=== PATIENT | female | born 1950 | race Caucasian/White ===

== ENCOUNTER 2019-09-25 13:53 | Observation (INO) ==
[2019-09-25 15:24] LABS: Bilirubin,Urine Negative (Negative); Blood,Urine Negative (Negative); Clarity,Urine Clear (Clear); Color,Urine Yellow (Yellow); Glucose,Urine (UA) >=1000 mg/dL (Normal); Ketones,Urine 40 mg/dL (Negative); Leukocyte Esterase,Urine Negative (Negative); Nitrite,Urine Negative (Negative); Protein,Urine Negative (Neg-Trace); Specific Gravity,Urine > 1.030 (1.010-1.025); Urobilinogen,Urine Normal (Normal)
[2019-09-25] MEDS ORDERED: Aspirin 81 MG TAB.CHEW PO ONE (15:30)
[2019-09-25] MEDS ORDERED: 0.9 % Sodium Chloride 1,000 ML IVC ONE ×3 (15:44→16:36)
[2019-09-25 15:51] LABS: Basophils % 0.4 %; Eosinophils # 0.1 K/mcL (0.0-0.6); Eosinophils % 0.6 %; Hematocrit 46.3 % (35.3-44.9); Hemoglobin 14.6 g/dL (11.5-15.4); Immature Granulocytes % 0.1 % (0-4); Lymphocytes # 1.5 K/mcL (0.6-4.6); Lymphocytes % 17.6 %; Mean Corpuscular HGB Conc 31.5 g/dL (31.6-35.5); Mean Corpuscular Hemoglobin 28.9 pg (28.0-33.3); Mean Corpuscular Volume 91.5 fL (83.0-100.0); Monocytes # 0.6 K/mcL (0.0-1.3); Monocytes % 7.1 %; Neutrophils # 6.3 K/mcL (1.6-8.9); Platelet Count 227 K/mcL (140-400); Red Blood Count 5.06 M/mcL (3.82-4.97); Segmented Neutrophils % 74.2 %; White Blood Count 8.5 K/mcL (4.3-11.1)
[2019-09-25 15:57] LABS: VBG HCO3 22 mEq/L (21-27); VBG PCO2 43 mmHg (41-51); VBG PH 7.32 pH Units (7.32-7.42); VBG PO2 36 mmHg (25-50)
[2019-09-25 16:17] LABS: Alanine Aminotransferase 14 Units/L (7-52); Albumin/Globulin Ratio 1.4 (1.1-2.2); Alkaline Phosphatase 145 Units/L (34-104); Aspartate Amino Transferase 10 Units/L (13-39); BUN/Creatinine Ratio 28 (6-26); Bilirubin,Total 0.9 mg/dL (0.3-1.0); Blood Urea Nitrogen 28 mg/dL (8-23); Calcium 9.6 mg/dL (8.6-10.3); Carbon Dioxide 21 mEq/L (23-29); Chloride 96 mEq/L (98-107); Globulin 2.9 g/dL (2.4-3.5); Glucose 552 mg/dL (70-105); Magnesium 2.1 mg/dL (1.6-2.6); Osmolality,Calculated 309 (280-300); Phosphorous 4.5 mg/dL (2.7-4.5); Potassium 4.4 mEq/L (3.5-5.1); Sodium 134 mEq/L (136-145); Total Protein 6.9 g/dL (6.4-8.9); Troponin I < 0.03 ng/mL (< 0.04); eGFR For African Americans > 60 (> 60); eGFR For Non-African Americans 56 (> 60)
[2019-09-25] MEDS ORDERED: *HR* Dextrose 50 % in Water (Syg) 50 ML SYRINGE IVP PRN ×2 (16:35→22:02)
[2019-09-25] MEDS ORDERED: Insulin Human Regular 100 UNIT in 0.9 % Sodium Chloride 100 ML IVC SCH (16:45)
[2019-09-25 16:59] LABS: Thyroid Stimulating Hormone 0.089 mcIU/mL (0.340-5.600)
[2019-09-25] MEDS ORDERED: Naloxone 0.4 MG/ML INJ IVP PRN (17:24)
[2019-09-25] MEDS ORDERED: Ondansetron 4 MG/2 ML VIAL IVP PRN (17:24)
[2019-09-25] MEDS ORDERED: D5% in 0.45% NACL 1,000 ML IVC PRN (17:29)
[2019-09-25] MEDS ORDERED: D5% in 0.45% NACL w KCl 20 MEQ/1,000 ML MLS IVC PRN (17:29)
[2019-09-25] MEDS ORDERED: Insulin Regular, Human 100 UNIT/ML IV PRN (17:29)
[2019-09-25] MEDS ORDERED: 0.9 % Sodium Chloride w KCl 20 MEQ/1,000 ML MLS IVC SCH (17:30)
[2019-09-25 20:32] LABS: C-Reactive Protein 33 mg/L (Less than 10); Creatine Kinase 35 Units/L (30-223)
[2019-09-25 20:33] LABS: BUN/Creatinine Ratio 30 (6-26); Blood Urea Nitrogen 25 mg/dL (8-23); Calcium 8.7 mg/dL (8.6-10.3); Carbon Dioxide 24 mEq/L (23-29); Chloride 105 mEq/L (98-107); Glucose 192 mg/dL (70-105); Osmolality,Calculated 296 (280-300); Potassium 3.9 mEq/L (3.5-5.1); Sodium 138 mEq/L (136-145); eGFR For African Americans > 60 (> 60); eGFR For Non-African Americans > 60 (> 60)
[2019-09-25] MEDS ORDERED: traZODone 50 MG TABLET PO PRN (20:36)
[2019-09-25] MEDS ORDERED: Insulin DETEMIR 100 UNIT/ML X5UNITS SQ SCH (22:00)
[2019-09-25] MEDS ORDERED: D5% in Water 1,000 ML IVC PRN (22:02)
[2019-09-25] MEDS ORDERED: Dextrose Gel 15 GM/37.5 ML TUBE PO PRN ×2 (22:02)
[2019-09-26 02:21] LABS: Estimated Average Glucose 200 mg/dl
[2019-09-26 02:25] LABS: Basophils % 0.4 %; Eosinophils # 0.1 K/mcL (0.0-0.6); Hematocrit 38.5 % (35.3-44.9); Immature Granulocytes % 0.3 % (0-4); Lymphocytes # 1.9 K/mcL (0.6-4.6); Lymphocytes % 27.6 %; Mean Corpuscular HGB Conc 32.7 g/dL (31.6-35.5); Mean Corpuscular Hemoglobin 29.2 pg (28.0-33.3); Mean Corpuscular Volume 89.3 fL (83.0-100.0); Mean Platelet Volume 10.2 fL (9.4-12.4); Monocytes # 0.6 K/mcL (0.0-1.3); Monocytes % 8.2 %; Neutrophils # 4.3 K/mcL (1.6-8.9); Platelet Count 208 K/mcL (140-400); Red Blood Count 4.31 M/mcL (3.82-4.97); Segmented Neutrophils % 61.5 %
[2019-09-26 02:42] LABS: BUN/Creatinine Ratio 33 (6-26); Blood Urea Nitrogen 21 mg/dL (8-23); Calcium 8.7 mg/dL (8.6-10.3); Carbon Dioxide 21 mEq/L (23-29); Chloride 109 mEq/L (98-107); Glucose 113 mg/dL (70-105); Magnesium 1.9 mg/dL (1.6-2.6); Osmolality,Calculated 292 (280-300); Phosphorous 3.7 mg/dL (2.7-4.5); Sodium 139 mEq/L (136-145); eGFR For African Americans > 60 (> 60); eGFR For Non-African Americans > 60 (> 60)
[2019-09-26 02:43] LABS: BUN/Creatinine Ratio 33 (6-26); Blood Urea Nitrogen 21 mg/dL (8-23); Calcium 8.7 mg/dL (8.6-10.3); Carbon Dioxide 22 mEq/L (23-29); Chloride 108 mEq/L (98-107); Glucose 112 mg/dL (70-105); Osmolality,Calculated 292 (280-300); Sodium 139 mEq/L (136-145); eGFR For African Americans > 60 (> 60); eGFR For Non-African Americans > 60 (> 60)
[2019-09-26 02:47] LABS: Hemoglobin 12.6 g/dL (11.5-15.4)
[2019-09-26 03:12] LABS: Triiodothyronine (T3) Total 0.82 ng/mL (0.87-1.78)
[2019-09-26] MEDS ORDERED: *HR* Heparin 5,000 UNIT/ML VIAL SQ SCH (06:00)
[2019-09-26] MEDS: Insulin LISPRO 300 UNITS/3 ML VIAL SQ SCH ×2 (08:07→12:17)
[2019-09-26 16:19] VITALS: BP 152/75
[2019-09-26] MEDS ORDERED: Insulin LISPRO 300 UNITS/3 ML VIAL SQ SCH (21:00)
== END 2019-09-26 17:33 | disposition home or self-care (01) ==
LOC: 2NNU 13:53 → EMEROOARM 13:53 → SUATTDRO 17:32 → 2NNU 18:15
PROVIDERS: ADMIT Internal Medicine; ATTEND Internal Medicine

== ENCOUNTER 2020-06-13 18:19 | Observation (INO) ==
[2020-06-13] MEDS ORDERED: Nitroglycerin 0.4 MG TAB.SUBL SL ONE (18:40)
[2020-06-13] MEDS: Nitroglycerin 0.4 MG TAB.SUBL SL SCH ×3 (18:43→18:55)
[2020-06-13 18:51] LABS: Basophils # 0.1 K/mcL (0.0-0.2); Basophils % 0.5 %; Eosinophils # 0.2 K/mcL (0.0-0.6); Eosinophils % 1.7 %; Hematocrit 46.8 % (35.3-44.9); Hemoglobin 15.1 g/dL (11.5-15.4); Immature Granulocytes % 0.2 % (0-4); Lymphocytes # 1.8 K/mcL (0.6-4.6); Lymphocytes % 18.1 %; Mean Corpuscular HGB Conc 32.3 g/dL (31.6-35.5); Mean Corpuscular Hemoglobin 29.4 pg (28.0-33.3); Mean Corpuscular Volume 91.1 fL (83.0-100.0); Mean Platelet Volume 9.7 fL (9.4-12.4); Monocytes # 0.6 K/mcL (0.0-1.3); Monocytes % 6.4 %; Neutrophils # 7.3 K/mcL (1.6-8.9); Platelet Count 240 K/mcL (140-400); Red Blood Count 5.14 M/mcL (3.82-4.97); Red Cell Distribution Width 12.9 % (11.5-14.5); Segmented Neutrophils % 73.1 %
[2020-06-13 18:57] LABS: Prothrombin Time 11.6 Seconds (9.4-12.1)
[2020-06-13 19:02] LABS: VBG HCO3 24 mEq/L (21-27); VBG PCO2 48 mmHg (41-51); VBG PH 7.31 pH Units (7.32-7.42); VBG PO2 49 mmHg (25-50)
[2020-06-13 19:16] LABS: Alanine Aminotransferase 13 Units/L (7-52); Albumin 4.6 g/dL (3.5-5.7); Albumin/Globulin Ratio 1.5 (1.1-2.2); Alkaline Phosphatase 143 Units/L (34-104); Aspartate Amino Transferase 12 Units/L (13-39); BUN/Creatinine Ratio 34 (6-26); Blood Urea Nitrogen 26 mg/dL (8-23); Carbon Dioxide 21 mEq/L (23-29); Chloride 96 mEq/L (98-107); Glucose 572 mg/dL (70-105); Osmolality,Calculated 307 (280-300); Potassium 4.2 mEq/L (3.5-5.1); Sodium 133 mEq/L (136-145); Total Protein 7.6 g/dL (6.4-8.9); Troponin I < 0.03 ng/mL (< 0.04); eGFR For African Americans > 60 (> 60); eGFR For Non-African Americans > 60 (> 60)
[2020-06-13] MEDS ORDERED: Isovue-370 500 ML BOTTLE IVP ONE (19:24)
[2020-06-13] MEDS ORDERED: D5% in 0.45% NACL w KCl 20 MEQ/1,000 ML MLS IVC PRN (20:13)
[2020-06-13] MEDS ORDERED: Insulin Regular, Human 100 UNIT/ML IV ONE (20:13)
[2020-06-13] MEDS ORDERED: Insulin Regular, Human 100 UNIT/ML IV PRN (20:13)
[2020-06-13] MEDS ORDERED: *HR* Dextrose 50 % in Water (Vial) 50 ML VIAL IVP PRN (20:13)
[2020-06-13] MEDS ORDERED: Insulin Human Regular 100 UNIT in 0.9 % Sodium Chloride 100 ML IVC SCH (20:15)
[2020-06-13] MEDS ORDERED: 0.45 % Sodium Chloride w/KCl 20 MEQ/1,000 ML MLS IVC SCH (20:15)
[2020-06-13] MEDS ORDERED: 0.9 % Sodium Chloride 1,000 ML IVC ONE (20:16)
[2020-06-13] MEDS ORDERED: Naloxone 0.4 MG/ML INJ IVP PRN (20:20)
[2020-06-13] MEDS ORDERED: Aspirin 325 MG TABLET PO ONE (20:20)
[2020-06-13] MEDS ORDERED: Acetaminophen 325 MG TABLET PO PRN (20:20)
[2020-06-13] MEDS ORDERED: Ondansetron ODT 4 MG TAB.RAPDIS SL PRN (20:20)
[2020-06-13] MEDS ORDERED: methylPREDNISolone 125 MG/2 ML VIAL IVP ONE (21:11)
[2020-06-13] MEDS: Nitroglycerin 1 INCH/GM PACKET TP SCH (22:22)
[2020-06-13] MEDS: Melatonin 3 MG TABLET PO SCH (22:22)
[2020-06-13 22:59] LABS: Bilirubin,Urine Negative (Negative); Blood,Urine Negative (Negative); Clarity,Urine Clear (Clear); Color,Urine Colorless (Yellow); Glucose,Urine (UA) >=1000 mg/dL (Normal); Ketones,Urine 60 mg/dL (Negative); Leukocyte Esterase,Urine Negative (Negative); Nitrite,Urine Negative (Negative); PH,Urine 5.5 pH Units (5.0-8.0); Protein,Urine Negative (Neg-Trace); RBC,Urine 0-3 per hpf (0-3); Specific Gravity,Urine > 1.030 (1.010-1.025); Squamous Epithelial Cell,Urine Few per hpf (None-Few); Urobilinogen,Urine Normal (Normal); WBC,Urine 0-3 per hpf (0-3)
[2020-06-13 23:09] LABS: Amphetamine Screen,Urine Negative ng/mL (Cutoff=1000); Barbiturate Screen,Urine Negative ng/mL (Cutoff=200); Benzodiazepines Screen,Urine Negative ng/mL (Cutoff=200); Cannabinoid Screen,Urine Negative ng/mL (Cutoff = 50); Cocaine Screen,Urine Negative ng/mL (Cutoff= 300); Opiate Screen,Urine Negative ng/mL (Cutoff=300); Phencyclidine Screen,Urine Negative ng/mL (Cutoff=25)
[2020-06-13] MEDS: Ipratropium/Albuterol Neb 3 ML IH SCH (23:35)
[2020-06-14 02:02] LABS: BUN/Creatinine Ratio 39 (6-26); Blood Urea Nitrogen 26 mg/dL (8-23); Calcium 8.5 mg/dL (8.6-10.3); Carbon Dioxide 20 mEq/L (23-29); Chloride 106 mEq/L (98-107); Glucose 143 mg/dL (70-105); Osmolality,Calculated 291 (280-300); Potassium 3.5 mEq/L (3.5-5.1); Sodium 137 mEq/L (136-145); eGFR For African Americans > 60 (> 60); eGFR For Non-African Americans > 60 (> 60)
[2020-06-14] MEDS: Ipratropium/Albuterol Neb 3 ML IH SCH ×6 (03:36→23:48)
[2020-06-14] MEDS ORDERED: Dextrose Gel 15 GM/37.5 ML TUBE PO PRN ×2 (03:41)
[2020-06-14] MEDS ORDERED: D5% in Water 1,000 ML IVC PRN (03:41)
[2020-06-14] MEDS ORDERED: Insulin DETEMIR 100 UNIT/ML X5UNITS SQ SCH ×2 (03:47→05:15)
[2020-06-14] MEDS ORDERED: Patient Taking Own Medication 1 EACH SQ SCH (04:15)
[2020-06-14] MEDS: Nitroglycerin 1 INCH/GM PACKET TP SCH (04:58)
[2020-06-14] MEDS: *HR* Enoxaparin 40 MG/0.4 ML SYRINGE SQ SCH (04:58)
[2020-06-14 06:30] LABS: Basophils % 0.2 %; Hematocrit 41.1 % (35.3-44.9); Immature Granulocytes % 0.3 % (0-4); Lymphocytes # 0.8 K/mcL (0.6-4.6); Lymphocytes % 8.4 %; Mean Corpuscular HGB Conc 32.1 g/dL (31.6-35.5); Mean Corpuscular Hemoglobin 28.8 pg (28.0-33.3); Mean Corpuscular Volume 89.5 fL (83.0-100.0); Mean Platelet Volume 10.2 fL (9.4-12.4); Monocytes # 0.1 K/mcL (0.0-1.3); Monocytes % 1.2 %; Neutrophils # 8.4 K/mcL (1.6-8.9); Platelet Count 211 K/mcL (140-400); Red Blood Count 4.59 M/mcL (3.82-4.97); Red Cell Distribution Width 12.8 % (11.5-14.5); Segmented Neutrophils % 89.9 %; White Blood Count 9.4 K/mcL (4.3-11.1)
[2020-06-14 06:34] LABS: Hemoglobin 13.2 g/dL (11.5-15.4)
[2020-06-14 06:37] LABS: VBG HCO3 19 mEq/L (21-27); VBG PCO2 36 mmHg (41-51); VBG PH 7.34 pH Units (7.32-7.42); VBG PO2 154 mmHg (25-50)
[2020-06-14] MEDS: Insulin LISPRO 300 UNITS/3 ML VIAL SQ SCH ×6 (06:42→16:22)
[2020-06-14 06:51] LABS: BUN/Creatinine Ratio 33 (6-26); Blood Urea Nitrogen 24 mg/dL (8-23); Calcium 9.1 mg/dL (8.6-10.3); Carbon Dioxide 17 mEq/L (23-29); Chloride 103 mEq/L (98-107); Glucose 341 mg/dL (70-105); Osmolality,Calculated 300 (280-300); Potassium 3.5 mEq/L (3.5-5.1); Sodium 136 mEq/L (136-145); eGFR For African Americans > 60 (> 60); eGFR For Non-African Americans > 60 (> 60)
[2020-06-14] MEDS ORDERED: Insulin LISPRO 300 UNITS/3 ML VIAL SQ SCH ×2 (07:30→21:00)
[2020-06-14] MEDS: Aspirin 81 MG TAB.CHEW PO SCH (08:39)
[2020-06-14] MEDS ORDERED: predniSONE 20 MG TABLET PO SCH (09:00)
[2020-06-14] MEDS ORDERED: Metoprolol XL (24 HR) Succ 25 MG TAB.ER.24H PO SCH (09:30)
[2020-06-14] MEDS: Melatonin 3 MG TABLET PO SCH (19:35)
[2020-06-14] MEDS: Insulin DETEMIR 100 UNIT/ML X5UNITS SQ SCH (19:35)
[2020-06-14] MEDS ORDERED: traZODone 50 MG TABLET PO SCH (21:00)
[2020-06-15] MEDS: Ipratropium/Albuterol Neb 3 ML IH SCH ×3 (03:21→11:16)
[2020-06-15 04:16] LABS: Basophils % 0.1 %; Eosinophils % 0.1 %; Hematocrit 37.3 % (35.3-44.9); Immature Granulocytes % 0.4 % (0-4); Lymphocytes # 1.8 K/mcL (0.6-4.6); Mean Corpuscular HGB Conc 32.2 g/dL (31.6-35.5); Mean Corpuscular Hemoglobin 28.6 pg (28.0-33.3); Mean Platelet Volume 9.8 fL (9.4-12.4); Monocytes # 0.6 K/mcL (0.0-1.3); Monocytes % 5.2 %; Neutrophils # 9.5 K/mcL (1.6-8.9); Platelet Count 202 K/mcL (140-400); Red Blood Count 4.19 M/mcL (3.82-4.97); Red Cell Distribution Width 13.2 % (11.5-14.5); Segmented Neutrophils % 79.2 %
[2020-06-15 04:35] LABS: BUN/Creatinine Ratio 45 (6-26); Blood Urea Nitrogen 29 mg/dL (8-23); Calcium 8.9 mg/dL (8.6-10.3); Carbon Dioxide 22 mEq/L (23-29); Chloride 107 mEq/L (98-107); Glucose 226 mg/dL (70-105); Magnesium 2.3 mg/dL (1.6-2.6); Osmolality,Calculated 299 (280-300); Phosphorous 3.1 mg/dL (2.7-4.5); Potassium 3.9 mEq/L (3.5-5.1); Sodium 138 mEq/L (136-145); eGFR For African Americans > 60 (> 60); eGFR For Non-African Americans > 60 (> 60)
[2020-06-15] MEDS: *HR* Enoxaparin 40 MG/0.4 ML SYRINGE SQ SCH (05:43)
[2020-06-15] MEDS ORDERED: Regadenoson 0.4 MG/5 ML SYRINGE IVP ONE (06:58)
[2020-06-15] MEDS: Insulin LISPRO 300 UNITS/3 ML VIAL SQ SCH ×4 (08:52→12:16)
[2020-06-15] MEDS ORDERED: Insulin DETEMIR 100 UNIT/ML X5UNITS SQ SCH (09:00)
[2020-06-15] MEDS ORDERED: Metoprolol XL (24 HR) Succ 25 MG TAB.ER.24H PO SCH (09:00)
[2020-06-15] MEDS ORDERED: predniSONE 20 MG TABLET PO SCH (09:00)
[2020-06-15] MEDS: Aspirin 81 MG TAB.CHEW PO SCH (09:10)
[2020-06-15] MEDS: Insulin DETEMIR 100 UNIT/ML X5UNITS SQ SCH (09:12)
[2020-06-15 11:02] VITALS: BP 131/68
== END 2020-06-15 14:04 | disposition home or self-care (01) ==
LOC: EMEROOARM 18:19 → 2NNU 18:19 → SUATTDRO 20:24 → 2NNU 20:35 → 2ANU 06-14 12:30
PROVIDERS: ADMIT Internal Medicine; ATTEND Internal Medicine